=== PATIENT | female | born 1985 | race Caucasian/White ===

== ENCOUNTER 2017-03-17 12:32 | Emergency (ER) | payer MEDICAID ==
[~2017-03-17] VITALS: Wt 51.5 kg
[~2017-03-17 12:32] MED LIST: IBUP-1542 PO; METH500T PO; NAPR-688 PO; PROM6.25 PO
[2017-03-17] MEDS ORDERED: SOD CHLORIDE 0.9% 1,000 ML IV STA (14:53)
[2017-03-17] MEDS ORDERED: ONDANSETRON 4 MG INJ IV STA (14:53)
[2017-03-17] MEDS ORDERED: morphine 4 MG/ML VIAL IV STA (14:53)
[2017-03-17 15:19] LABS: BASOPHILS % 0.4 % (0.0-2.0); EOSINOPHILS # 0.2 10^3/ul (0.0-0.5); EOSINOPHILS % 1.8 % (0.0-7.0); HEMATOCRIT 43.3 % (37.0-47.0); HEMOGLOBIN 14.7 g/dl (12.0-16.0); LYMPHOCYTES # 1.4 10^3/ul (0.8-2.9); LYMPHOCYTES % 17.3 % (15.0-51.0); MEAN CORPUSCULAR HEMOGLOBIN 29.6 pg (29.0-33.0); MEAN CORPUSCULAR HGB CONC 33.9 g/dl (32.0-37.0); MEAN CORPUSCULAR VOLUME 87.3 fl (82.0-101.0); MONOCYTE # 0.8 10^3/ul (0.3-0.9); MONOCYTES % 9.4 % (0.0-11.0); NEUTROPHILS % 70.7 % (39.0-77.0); PLATELET COUNT 236 10^3/UL (140-415); RED BLOOD COUNT 4.96 10^6/ul (4.20-5.40); RED CELL DISTRIBUTION WIDTH 12.6 % (11.5-14.5); WHITE BLOOD COUNT 8.3 10^3/ul (4.8-10.8)
[2017-03-17 15:28] LABS: ADD UMIC YES; UR ASCORBIC ACID 20 mg/dL (NEGATIVE); UR BACTERIA FEW /HPF (NONE SEEN); UR BILIRUBIN (Dip) NEGATIVE (NEGATIVE); UR BLOOD (Dip) NEGATIVE (NEGATIVE); UR CLARITY SLIGHTLY CLOUDY (CLEAR); UR COLOR YELLOW (YELLOW); UR GLUCOSE (Dip) NEGATIVE (NEGATIVE); UR KETONES (Dip) NEGATIVE (NEGATIVE); UR LEUKOCYTE ESTERASE (Dip) 3+ Leu/ul (NEGATIVE); UR MUCUS FEW /HPF (NONE SEEN); UR NITRITE (Dip) NEGATIVE (NEGATIVE); UR RBC 2 /HPF (0-5); UR SPECIFIC GRAVITY (Dip) 1.025 (1.003-1.030); UR SQUAMOUS EPITHELIAL CELL FEW /HPF (FEW); UR TOTAL PROTEIN (Dip) NEGATIVE (NEGATIVE); UR UROBILINOGEN (Dip) 1+ mg/dL (NEGATIVE)
--- NOTE | 2017-03-17 15:43 | RADRPT ---
PROCEDURE: US Pelvis CLINICAL INDICATION: pelvic pain TECHNIQUE: Multiple sonographic images of the pelvis were obtained utilizing a transabdominal and endovaginal technique. The images were reviewed on a PACS workstation. COMPARISON: Pelvic ultrasound from 03/04/2015 LMP: 01/09/2017 FINDINGS: The uterus measures 7.1 x 3.4 x 4.4 cm. The endometrial echo complex measures 4 mm in thickness. T he uterus is heterogeneous and the junctional zone between the endometrium and myometrium is indisti nct. No discrete lesion is seen. The right ovary measures 2.9 x 1.7 x 2.2 cm. The left ovary measures 2.9 x 1.9 x 2.3 cm. There is no rmal vascular flow in both ovaries. There is a 9 mm partially circumscribed cystic lesion with low level internal echoes in the left ova ry which may be a hemorrhagic/corpus luteal cyst. No significant pelvic free fluid is identified. IMPRESSION: The uterus is heterogeneous and the junctional zone between the endometrium and myometrium is indist inct. Clinical correlation for adenomyosis is recommended. 9 mm complex cystic lesion in the left ovary may be a hemorrhagic/corpus luteal cyst. RPTAT: EE Physician Isabella Date Time Electronically viewed and signed by Physician Isabella on 03/17/2017 15:42 /
[2017-03-17 15:44] LABS: ALBUMIN 4.8 g/dl (3.3-4.9); ALBUMIN/GLOBULIN RATIO 1.37; BILIRUBIN,INDIRECT 0.3 mg/dl (0-1.1); BILIRUBIN,TOTAL 0.3 mg/dl (0.2-1.3); CALCIUM 9.4 mg/dl (8.4-10.2); CREATININE 0.83 mg/dl (0.44-1.00); POTASSIUM 3.8 mmol/L (3.5-5.1); TOTAL PROTEIN 8.3 g/dl (6.1-8.1)
--- NOTE | 2017-03-17 16:02 | RADRPT ---
PROCEDURE: CT abdomen and pelvis without IV contrast. CLINICAL INDICATION: Abdomen pain. TECHNIQUE: CT scan of the abdomen and pelvis was performed on a [address] scanner. The patient is scanned without IV contrast. Coronal and sagittal reformatted images were obtained from the axia l source images. Images were reviewed on a high-resolution PACS workstation. Total radiation dose: Total CTDIvol: 5.57 mGy. Total DLP: 306 mGy-cm. One or more of the followin g dose reduction techniques were used: automated exposure control, adjustment of the mA and/or kV ac cording to patient size, or use of iterative reconstruction technique. COMPARISON: CT abdomen and pelvis, 03/04/2015. FINDINGS: CT abdomen: The lung bases are clear. The heart is not enlarged without pericardial thickening or effusion. The liver is normal in size and density without focal hepatic mass or biliary dilatation. The splee n is normal in size. The stomach is partially collapsed but is grossly unremarkable. The pancreas as visualized is normal. The gallbladder is normal and there is no evidence of biliary dilatation. The adrenal glands are symmetrical and normal. The kidneys are symmetrically normal bilaterally. N o renal obstructive uropathy or mass lesion is seen.. The aorta is normal in caliber. There is no retroperitoneal lymphadenopathy. The geoffrey hepatis reg ion is clear. The bowel and mesentery, as visualized, are equally unremarkable. CT pelvis: There is a tiny free fluid in the cul-de-sac of the pelvis. The appendix is normal in the right lowe r quadrant. The small bowel loops situated within the pelvis are unremarkable. The female pelvic o rgans are normal. The pelvic sidewalls and inguinal regions are clear. No mass, lymphadenopathy is seen. No acute inflammation seen. The urinary bladder is normal. The surrounding osseous structures are unremarkable. No osteolytic or osteoblastic lesion is detect ed. IMPRESSION: 1. Unremarkable CT abdomen and pelvis without IV contrast. 2. A tiny fluid in the cul-de-sac of the pelvis, likely physiologic. RPTAT: GG .Olu Lanza MD, Date Time Electronically viewed and signed by .Olu Lanza MD, on 03/17/2017 16:02 .Y/
[2017-03-17] MEDS ORDERED: IBUP-1542 PO (16:19)
[2017-03-17] MEDS ORDERED: ONDA-43 PO (16:19)
[2017-03-17] MEDS ORDERED: NITR-58 PO (16:19)
--- NOTE | 2017-03-17 16:29 | ERD ---
ER Documentation Chief Complaint Date/Time DATE: 03/17/17 TIME: 16:24 Chief Complaint pelvic pain HPI This is a 31-year-old female presents to the ER with right lower quadrant pain that started yesterday. Patient states that right lower quadrant pain radiates up into her right upper quadrant or right pelvic area and into her entire back. Patient states that last night she had a fever and she had nausea and nonbilious nonbloody vomiting. Patient denies any urinary frequency or dysuria. She states that pain is severe and has been constant. She has not tried anything for the pain. Patient has an Implanon in place and because of this has not had a period since December. Patient denies any chest pain or shortness of breath. ROS 12 point review of systems was done, all negative except per HPI. Medications Home Meds Active Scripts Ondansetron Hcl* (Zofran*) 4 Mg Tab, 4 MG PO Q4H Y for NAUSEA AND OR VOMITING, # 15 TAB Prov:KASANDRA SANDHU 03/17/17 Ibuprofen* (Motrin*) 600 Mg Tab, 600 MG PO Q6, #30 TAB Prov:KASANDRA SANDHU 03/17/17 Nitrofurantoin Monohyd Macrocr* (Macrobid*) 100 Mg Capsr, 100 MG PO BID for 7 Days, CAP Prov:KASANDRA SANDHU 03/17/17 Naproxen* (Naproxen*) 500 Mg Tablet, 500 MG PO BID Y for PAIN, #20 TAB Prov:JUDY RABAGO DO 06/22/15 Methocarbamol* (Robaxin*) 500 Mg Tab, 500 MG PO Q6, #14 TAB Prov:JUDY RABAGO DO 06/22/15 Promethazine w/Codeine* (Phenergan w/Codeine* Syrup) 5 Ml Syrup, 5 ML PO Q4H Y for COUGH, #60 ML Prov:VIVIANA MAC PA-C 06/04/15 Ibuprofen* (Motrin*) 600 Mg Tab, 600 MG PO Q6H Y for PAIN AND OR ELEVATED TEMP, #30 Prov:VIVIANA MAC PA-C 06/04/15 Allergies Allergies: Coded Allergies: Penicillins (Verified Allergy, Mild, RASH, 05/24/15) PMhx/Soc Medical and Surgical Hx: pt denies Medical Hx, pt denies Surgical Hx History of Surgery: No Hx Neurological Disorder: No Hx Respiratory Disorders: No Hx Cardiac Disorders: No Hx Psychiatric Problems: No Hx Miscellaneous Medical Probl: No Hx Alcohol Use: No Hx Substance Use: No Hx Tobacco Use: No Physical Exam Vitals Vital Signs Date Time Temp Pulse Resp B/P Pulse Ox O2 Delivery O2 Flow Rate FiO2 03/17/17 12:38 99.0 98 18 121/72 99 Physical Exam GENERAL: The patient is well developed and appropriate for usual state of health , in no apparent distress. HEENT: Atraumatic. CHEST: Clear to auscultation bilaterally. There are no rales, wheezes or rhonchi. HEART: Regular rate and rhythm. No murmurs, clicks, rubs or gallops. ABDOMEN: Soft nondistended, tender to palpation all over the abdomen.. Good bowel sounds. No rebound or guarding. No gross peritonitis. No gross organomegaly or masses. No John sign or McBurney point tenderness. BACK: No midline or flank tenderness. NEURO: Alert and oriented. Result Diagram: 03/17/17 1505 03/17/17 1505 Results 24 hrs Laboratory Tests Test 03/17/17 15:05 White Blood Count 8.310^3/ul Red Blood Count 4.9610^6/ul Hemoglobin 14.7g/dl Hematocrit 43.3% Mean Corpuscular Volume 87.3fl Mean Corpuscular Hemoglobin 29.6pg Mean Corpuscular Hemoglobin Concent 33.9g/dl Red Cell Distribution Width 12.6% Platelet Count 42356^3/UL Mean Platelet Volume 11.0fl Neutrophils % 70.7% Lymphocytes % 17.3% Monocytes % 9.4% Eosinophils % 1.8% Basophils % 0.4% Nucleated Red Blood Cells % 0.0/100WBC Neutrophils # (Manual) 5.910^3/ul Lymphocytes # 1.410^3/ul Monocytes # 0.810^3/ul Eosinophils # 0.210^3/ul Basophils # 0.010^3/ul Nucleated Red Blood Cells # 0.010^3/ul Urine Color YELLOW Urine Clarity SLIGHTLY CLOUDY Urine pH 6.0 Urine Specific [place] 1.025 Urine Ketones NEGATIVEmg/dL Urine Nitrite NEGATIVEmg/dL Urine Bilirubin NEGATIVEmg/dL Urine Urobilinogen 1+mg/dL Urine Leukocyte Esterase 3+Darion/ul Urine Microscopic RBC 2/HPF Urine Microscopic WBC 13/HPF Urine Squamous Epithelial Cells FEW/HPF Urine Bacteria FEW/HPF Urine Mucus FEW/HPF Urine Hemoglobin NEGATIVEmg/dL Urine Glucose NEGATIVEmg/dL Urine Total Protein NEGATIVEmg/dl Sodium Level 144mmol/L Potassium Level 3.8mmol/L Chloride Level 105mmol/L Carbon Dioxide Level 29mmol/L Anion Gap 14 Blood Urea Nitrogen 12mg/dl Creatinine 0.83mg/dl Glucose Level 83mg/dl Calcium Level 9.4mg/dl Total Bilirubin 0.3mg/dl Direct Bilirubin 0.00mg/dl Indirect Bilirubin 0.3mg/dl Aspartate Amino Transf (AST/SGOT) 17IU/L Alanine Aminotransferase (ALT/SGPT) 23IU/L Alkaline Phosphatase 67IU/L Total Protein 8.3g/dl Albumin 4.8g/dl Globulin 3.50g/dl Albumin/Globulin Ratio 1.37 Lipase 71U/L Current Medications Medications (Trade) Dose Ordered Sig/Samson Route PRN Reason Start Time Stop Time Status Last Admin Dose Admin Sodium Chloride (NS) 1,000 ml @ 1,000 mls/hr Q1H STAT IV 03/17/17 14:53 03/17/17 15:52 DC 03/17/17 15:57 Morphine Sulfate (morphine) 4 mg ONCE STAT IV 03/17/17 14:53 03/17/17 14:55 DC 03/17/17 15:58 Ondansetron HCl (Zofran Inj) 4 mg ONCE STAT IV 03/17/17 14:53 03/17/17 14:55 DC 03/17/17 15:58 [place] [address] Radiology Main Line: [phone] DIAGNOSTIC IMAGING REPORT Patient: JOSE DUMONT : 1985 Age: 31 Sex: F MR #: [id number] DOS: 03/17/17 [facility]3 Ordering MD: KASANDRA SANDHU PA-C Location: [facility] Room/Bed: PROCEDURE: CT abdomen and pelvis without IV contrast. CLINICAL INDICATION: Abdomen pain. TECHNIQUE: CT scan of the abdomen and pelvis was performed on a [address] scanner. The patient is scanned without IV contrast. Coronal and sagittal reformatted images were obtained from the axial source images. Images were reviewed on a high-resolution PACS workstation. Total radiation dose: Total CTDIvol: 5.57 mGy. Total DLP: 306 mGy-cm. One or more of the following dose reduction techniques were used: automated exposure control, adjustment of the mA and/or kV according to patient size, or use of iterative reconstruction technique. COMPARISON: CT abdomen and pelvis, 03/04/2015. FINDINGS: CT abdomen: The lung bases are clear. The heart is not enlarged without pericardial thickening or effusion. The liver is normal in size and density without focal hepatic mass or biliary dilatation. The spleen is normal in size. The stomach is partially collapsed but is grossly unremarkable. The pancreas as visualized is normal. The gallbladder is normal and there is no evidence of biliary dilatation. The adrenal glands are symmetrical and normal. The kidneys are symmetrically normal bilaterally. No renal obstructive uropathy or mass lesion is seen.. The aorta is normal in caliber. There is no retroperitoneal lymphadenopathy. The geoffrey hepatis region is clear. The bowel and mesentery, as visualized, are equally unremarkable. CT pelvis: There is a tiny free fluid in the cul-de-sac of the pelvis. The appendix is normal in the right lower quadrant. The small bowel loops situated within the pelvis are unremarkable. The female pelvic organs are normal. The pelvic sidewalls and inguinal regions are clear. No mass, lymphadenopathy is seen. No acute inflammation seen. The urinary bladder is normal. The surrounding osseous structures are unremarkable. No osteolytic or osteoblastic lesion is detected. IMPRESSION: 1. Unremarkable CT abdomen and pelvis without IV contrast. 2. A tiny fluid in the cul-de-sac of the pelvis, likely physiologic. RPTAT: GG .Olu Lanza MD, Date Time Electronically viewed and signed by .Olu Lanza MD, on 03/17/2017 16:02 .Y/ CC: KASANDRA SANDHU [place] [address] Radiology Main Line: [phone] DIAGNOSTIC IMAGING REPORT Patient: JOSE DUMONT : 1985 Age: 31 Sex: F MR #: [id number] DOS: 03/17/17 0000 Ordering MD: KASANDRA SANDHU. PA-C Location: [facility]TE Room/Bed: PROCEDURE: US Pelvis CLINICAL INDICATION: pelvic pain TECHNIQUE: Multiple sonographic images of the pelvis were obtained utilizing a transabdominal and endovaginal technique. The images were reviewed on a PACS workstation. COMPARISON: Pelvic ultrasound from 03/04/2015 LMP: 01/09/2017 FINDINGS: The uterus measures 7.1 x 3.4 x 4.4 cm. The endometrial echo complex measures 4 mm in thickness. The uterus is heterogeneous and the junctional zone between the endometrium and myometrium is indistinct. No discrete lesion is seen. The right ovary measures 2.9 x 1.7 x 2.2 cm. The left ovary measures 2.9 x 1.9 x 2.3 cm. There is normal vascular flow in both ovaries. There is a 9 mm partially circumscribed cystic lesion with low level internal echoes in the left ovary which may be a hemorrhagic/corpus luteal cyst. No significant pelvic free fluid is identified. IMPRESSION: The uterus is heterogeneous and the junctional zone between the endometrium and myometrium is indistinct. Clinical correlation for adenomyosis is recommended. 9 mm complex cystic lesion in the left ovary may be a hemorrhagic/corpus luteal cyst. RPTAT: EE Physician Isabella Date Time Electronically viewed and signed by Physician Isabella on 03/17/2017 15:42 RA/ CC: KASANDRA SANDHU Procedures/MDM Differential Diagnosis: GERD, gastritis, peptic ulcer disease, pancreatitis, cholecystitis, choledocholithiasis, biliary colic, cholangitis, Gwjv-Yljn-Xwwrvr , ACS/LA, appendicitis, hernia, UTI, constipation, ectopic , ovarian torsion, PID, Mittelschmerz, fibroid. At this time patient does appear to have a urinary tract infection suspicion for pyelonephritis is low as she does not have any CVA tenderness and is well-appearing. Patient for acute abdomen is low , patient's abdominal examination is benign. Patient will be sent home with Dustin and Devin. She is to follow-up with her primary care doctor within 1- 2 days return to ER sooner if symptoms worsen. My medical decision making shared with the patient she understands and agrees with plan. Departure Diagnosis: Primary Impression: UTI (urinary tract infection) Additional Impression: Ovarian cyst Condition: Stable Patient Instructions: Understanding Urinary Tract Infections (UTIs) Additional Instructions: Call your primary care doctor TOMORROW for an appointment during the next 1-2 days.See the doctor sooner or return here if your condition worsens before your appointment time. KASANDRA SANDHU Mar 17, 2017 16:29
[2017-03-17 16:32] VITALS: BP 109/77; PULSE 64; RESP 16; TEMP 98.6
== END 2017-03-17 16:35 | disposition home or self-care (01) ==
LOC: FTE 12:32
DX: N39.0 Urinary tract infection, site not specified (principal); N83.292 Other ovarian cyst, left side; R11.2 Nausea with vomiting, unspecified
CPT/HCPCS: 36415; 74176; 76830; 76856; 80053; 81001; 83690; 85025; 96374; 96375; J2270; J2405; J7030; Z7502

== ENCOUNTER 2017-03-19 22:04 | Emergency (ER) | payer MEDICAID ==
[~2017-03-19] VITALS: Ht 154.9 cm; Wt 53.0 kg
[~2017-03-19 22:04] MED LIST changes: +NITR-58 PO; +ONDA-43 PO
[2017-03-19 22:09] VITALS: Ht 154.9 cm; Wt 53.0 kg
[2017-03-19] MEDS ORDERED: SOD CHLORIDE 0.9% 1,000 ML IV STA (23:10)
[2017-03-19] MEDS ORDERED: ONDANSETRON 4 MG INJ IV STA (23:10)
[2017-03-19] MEDS ORDERED: morphine 4 MG/ML VIAL IV STA ×2 (23:10→23:55)
[2017-03-20] MEDS ORDERED: METOCLOPRAMIDE 10 MG INJ IV ONE
[2017-03-20] MEDS ORDERED: HYDR-906 PO (00:17)
[2017-03-20] MEDS ORDERED: CEFTRIAXONE 1 GM/50 ML (PMX) 50 ML IVPB STA (00:19)
[2017-03-20] MEDS ORDERED: CEPH-443 PO (00:20)
[2017-03-20 00:25] LABS: BASOPHIL # 0.1 10^3/ul (0.0-0.1); BASOPHILS % 0.6 % (0.0-2.0); EOSINOPHILS # 0.1 10^3/ul (0.0-0.5); EOSINOPHILS % 1.8 % (0.0-7.0); HEMOGLOBIN 13.5 g/dl (12.0-16.0); LYMPHOCYTES # 1.7 10^3/ul (0.8-2.9); LYMPHOCYTES % 21.9 % (15.0-51.0); MEAN CORPUSCULAR HEMOGLOBIN 29.6 pg (29.0-33.0); MEAN CORPUSCULAR HGB CONC 33.8 g/dl (32.0-37.0); MEAN CORPUSCULAR VOLUME 87.7 fl (82.0-101.0); MEAN PLATELET VOLUME 11.3 fl (7.4-10.4); MONOCYTE # 0.8 10^3/ul (0.3-0.9); MONOCYTES % 9.8 % (0.0-11.0); NEUTROPHILS % 65.8 % (39.0-77.0); PLATELET COUNT 206 10^3/UL (140-415); RED BLOOD COUNT 4.56 10^6/ul (4.20-5.40); RED CELL DISTRIBUTION WIDTH 12.5 % (11.5-14.5); WHITE BLOOD COUNT 7.8 10^3/ul (4.8-10.8)
[2017-03-20 00:36] LABS: ALBUMIN 4.3 g/dl (3.3-4.9); ALBUMIN/GLOBULIN RATIO 1.43; BILIRUBIN,INDIRECT 0.2 mg/dl (0-1.1); BILIRUBIN,TOTAL 0.2 mg/dl (0.2-1.3); CALCIUM 9.4 mg/dl (8.4-10.2); CREATININE 0.73 mg/dl (0.44-1.00); POTASSIUM 3.4 mmol/L (3.5-5.1); TOTAL PROTEIN 7.3 g/dl (6.1-8.1)
[2017-03-20 01:07] LABS: ADD UMIC YES; UR ASCORBIC ACID 40 mg/dL (NEGATIVE); UR BILIRUBIN (Dip) NEGATIVE (NEGATIVE); UR BLOOD (Dip) NEGATIVE (NEGATIVE); UR CLARITY SLIGHTLY CLOUDY (CLEAR); UR COLOR YELLOW (YELLOW); UR GLUCOSE (Dip) NEGATIVE (NEGATIVE); UR KETONES (Dip) TRACE mg/dL (NEGATIVE); UR LEUKOCYTE ESTERASE (Dip) 3+ Leu/ul (NEGATIVE); UR MUCUS FEW /HPF (NONE SEEN); UR NITRITE (Dip) NEGATIVE (NEGATIVE); UR RBC 3 /HPF (0-5); UR SPECIFIC GRAVITY (Dip) 1.015 (1.003-1.030); UR SQUAMOUS EPITHELIAL CELL FEW /HPF (FEW); UR TOTAL PROTEIN (Dip) NEGATIVE (NEGATIVE); UR UROBILINOGEN (Dip) NEGATIVE (NEGATIVE)
--- NOTE | 2017-03-20 01:20 | ERD ---
ER Documentation Chief Complaint Date/Time DATE: 03/20/17 TIME: 01:12 Chief Complaint pt bib self with c/o abd pain since Thursday HPI This is a 31-year-old female presenting to the emergency department for the second time this past week for same complaint. Patient presents complaining of severe generalized abdominal pain mostly in the right pelvic region, nonbilious nonbloody vomiting, nonbloody diarrhea. She denies any fevers. Patient was evaluated here on Thursday and received a CT scan which was negative. She was positive for a urinary tract infection and was given Cipro. Patient states that she is compliant with Cipro, Zofran however she continues to have pain and vomiting and diarrhea. ROS All systems reviewed and are negative except as per history of present illness. Medications Home Meds Active Scripts Cephalexin* (Keflex*) 500 Mg Capsule, 500 MG PO QID for 10 Days, CAP Prov:VIVIANA MAC PA-C 03/20/17 Hydrocodone/Acetaminophen ([place] 5-325 Tablet) 1 Each Tablet, 1 TAB PO Q6H Y for PAIN, #7 TAB Prov:VIVIANA MAC PA-C 03/20/17 Ondansetron Hcl* (Zofran*) 4 Mg Tab, 4 MG PO Q4H Y for NAUSEA AND OR VOMITING, # 15 TAB Prov:KASANDRA SANDHU 03/17/17 Ibuprofen* (Motrin*) 600 Mg Tab, 600 MG PO Q6, #30 TAB Prov:KASANDRA SANDHU 03/17/17 Nitrofurantoin Monohyd Macrocr* (Macrobid*) 100 Mg Capsr, 100 MG PO BID for 7 Days, CAP Prov:KASANDRA SANDHU 03/17/17 Naproxen* (Naproxen*) 500 Mg Tablet, 500 MG PO BID Y for PAIN, #20 TAB Prov:JUDY RABAGO DO 06/22/15 Methocarbamol* (Robaxin*) 500 Mg Tab, 500 MG PO Q6, #14 TAB Prov:JUDY RABAGO DO 06/22/15 Promethazine w/Codeine* (Phenergan w/Codeine* Syrup) 5 Ml Syrup, 5 ML PO Q4H Y for COUGH, #60 ML Prov:VIVIANA MAC PA-C 06/04/15 Ibuprofen* (Motrin*) 600 Mg Tab, 600 MG PO Q6H Y for PAIN AND OR ELEVATED TEMP, #30 Prov:VIVIANA MAC PA-C 06/04/15 Allergies Allergies: Coded Allergies: Penicillins (Verified Allergy, Mild, RASH, 05/24/15) PMhx/Soc Medical and Surgical Hx: pt denies Medical Hx, pt denies Surgical Hx History of Surgery: No Anesthesia Reaction: No Hx Neurological Disorder: No Hx Respiratory Disorders: No Hx Cardiac Disorders: No Hx Psychiatric Problems: No Hx Miscellaneous Medical Probl: No Hx Alcohol Use: No Hx Substance Use: No Hx Tobacco Use: No Smoking Status: Never smoker Physical Exam Vitals Vital Signs Date Time Temp Pulse Resp B/P Pulse Ox O2 Delivery O2 Flow Rate FiO2 03/19/17 22:09 98.6 79 16 119/66 99 Physical Exam GENERAL: well-developed/well-nourished, in no apparent distress, non-toxic appearing HENT: NC/AT, moist mucous membranes EYES: Conjunctiva normal NECK: Supple, no lymphadenopathy PULM: CTA bilaterally, no rales, rhonchi, or wheezing heard CV: Normal S1S2, RRR, good capillary refill GI: Soft, non-distended, tender to palpation all quadrants Normal bowel sounds, no masses or organomegaly felt on exam No gross peritonitis, no bruits Negative Rovsing, negative John, negative McBurney's point, Negative CVAT BACK: No masses EXT: No clubbing, cyanosis, or edema NEURO: Alert and Orientated SKIN: Intact, normal turgor PSYCH: Normal mood and mentation Result Diagram: 03/19/17231903/19/172319 Results 24 hrs Laboratory Tests Test 03/19/17 23:20 03/20/17 00:05 White Blood Count 7.810^3/ul Red Blood Count 4.5610^6/ul Hemoglobin 13.5g/dl Hematocrit 40.0% Mean Corpuscular Volume 87.7fl Mean Corpuscular Hemoglobin 29.6pg Mean Corpuscular Hemoglobin Concent 33.8g/dl Red Cell Distribution Width 12.5% Platelet Count 91579^3/UL Mean Platelet Volume 11.3fl Neutrophils % 65.8% Lymphocytes % 21.9% Monocytes % 9.8% Eosinophils % 1.8% Basophils % 0.6% Nucleated Red Blood Cells % 0.0/100WBC Neutrophils # (Manual) 5.210^3/ul Lymphocytes # 1.710^3/ul Monocytes # 0.810^3/ul Eosinophils # 0.110^3/ul Basophils # 0.110^3/ul Nucleated Red Blood Cells # 0.010^3/ul Sodium Level 143mmol/L Potassium Level 3.4mmol/L Chloride Level 104mmol/L Carbon Dioxide Level 28mmol/L Anion Gap 14 Blood Urea Nitrogen 10mg/dl Creatinine 0.73mg/dl Glucose Level 90mg/dl Calcium Level 9.4mg/dl Total Bilirubin 0.2mg/dl Direct Bilirubin 0.00mg/dl Indirect Bilirubin 0.2mg/dl Aspartate Amino Transf (AST/SGOT) 21IU/L Alanine Aminotransferase (ALT/SGPT) 28IU/L Alkaline Phosphatase 78IU/L Total Protein 7.3g/dl Albumin 4.3g/dl Globulin 3.00g/dl Albumin/Globulin Ratio 1.43 Lipase 79U/L Urine Color YELLOW Urine Clarity SLIGHTLY CLOUDY Urine pH 5.0 Urine Specific [place] 1.015 Urine Ketones TRACEmg/dL Urine Nitrite NEGATIVEmg/dL Urine Bilirubin NEGATIVEmg/dL Urine Urobilinogen NEGATIVEmg/dL Urine Leukocyte Esterase 3+Darion/ul Urine Microscopic RBC 3/HPF Urine Microscopic WBC 14/HPF Urine Squamous Epithelial Cells FEW/HPF Urine Mucus FEW/HPF Urine Hemoglobin NEGATIVEmg/dL Urine Glucose NEGATIVEmg/dL Urine Total Protein NEGATIVEmg/dl Current Medications Medications (Trade) Dose Ordered Sig/Samson Route PRN Reason Start Time Stop Time Status Last Admin Dose Admin Sodium Chloride (NS) 1,000 ml @ 1,000 mls/hr Q1H STAT IV 03/19/17 23:10 03/20/17 00:09 DC 03/19/17 23:31 Morphine Sulfate (morphine) 4 mg ONCE STAT IV 03/19/17 23:10 03/19/17 23:11 DC 03/19/17 23:31 Ondansetron HCl (Zofran Inj) 4 mg ONCE STAT IV 03/19/17 23:10 03/19/17 23:11 DC 03/19/17 23:31 Morphine Sulfate (morphine) 4 mg ONCE STAT IV 03/19/17 23:55 03/19/17 23:56 DC 03/19/17 23:58 Metoclopramide HCl 10 mg 10 mg ONCE ONCE IV 03/20/17 00:00 03/20/17 00:04 DC 03/19/17 23:59 Ceftriaxone Sodium (Rocephin) 50 ml @ 100 mls/hr ONCE STAT IVPB 03/20/17 00:19 03/20/17 00:48 DC 03/20/17 00:27 Procedures/MDM This is a 31-year-old female presenting to the emergency department for abdominal pain, nausea, vomiting, diarrhea since Thursday. Patient was seen here on Thursday and received a CT scan which was unremarkable for appendicitis, diverticulitis, nephrolithiasis. At this time, a repeat CT is unnecessary. Patient was positive for a urinary tract infection and given Cipro at that time. Patient continues to have abdominal pain nausea vomiting diarrhea, patient likely has a viral gastroenteritis with a urinary tract infection since she does have diarrhea. Today, repeat urinalysis was done and patient continues to be positive for infection. In the ED she was given ceftriaxone and a prescription for Keflex for the next 10 days. A urine culture was sent out. IV access established. Patient was given 1 L fluids, morphine and Zofran. Patient had improvement in symptoms. Patient's blood work continues to have no leukocytosis or anemia. CMP was unremarkable for any electrolyte, liver or renal abnormalities. Patient is stable to be discharged home with strict precautions to return to the emergency department for any worsening signs. She understands and agrees this plan Departure Diagnosis: Primary Impression: Nausea vomiting and diarrhea Additional Impression: UTI (urinary tract infection) Condition: Stable Patient Instructions: Understanding Urinary Tract Infections (UTIs), Diet, Vomiting Or Diarrhea [6Yr-Adult], Vomiting And Diarrhea, Nonspecific (Adult) Additional Instructions: Visite a lowery jackeline allen para un EXAMEN.Regrese a estas instalaciones si no se mejora leora esperbamos o leora le dijimos. Nikolai toda la medicina viktor y leora se le indic. Regrese a estas instalaciones si no se mejora leora esperbamos o leora le dijimos. VIVIANA MAC PA-C Mar 20, 2017 01:20
[2017-03-20 01:25] VITALS: BP 102/65; PULSE 66; RESP 16
== END 2017-03-20 01:27 | disposition home or self-care (01) ==
LOC: FTE 22:04
DX: R11.2 Nausea with vomiting, unspecified (principal); R19.7 Diarrhea, unspecified; N39.0 Urinary tract infection, site not specified
CPT/HCPCS: 36415; 80053; 81001; 83690; 85025; 87086; 96361; 96365; 96375; J0696; J2270; J2405; J2765; J7030; Z7502

== ENCOUNTER 2017-08-15 20:28 | Emergency (ER) | END 2017-08-15 21:54 | disposition home or self-care (01) ==